=== PATIENT | female | born 1955 | race Caucasian/White ===

== ENCOUNTER → 2020-09-21 07:30 | Outpatient (CLI) | payer OTHER, MEDICAID, SELFPAY ==
--- NOTE | 2020-09-21 | DI.ECHO.S_ITS ---
[facility] +---------+ : : [address] : [place] : : : : [id number] : : : : Phone: [phone]---------+ Echocardiogram Report + + :Name: PARK CEBALLOS Study Date: 09/21/2020 Height: 67 in : :[facility] ReadingLocation: Weight: 242 lb : : Gender: Female BSA: 2.2 m2 : :: 1955 Age: 65 yrs BP: 159/81 mmHg: :Reason For Study: Chest pain : :Ordering Physician: : :LETHA CORONA Performed By: Floyd Pradhan : :Referring: LETHA CORONA : + + Interpretation Summary The ejection fraction is estimated to be 60-65%. There is mild mitral regurgitation. There is a bioprosthetic aortic valve. The prosthetic aortic valve is not well visualized. There is probable normal prosthetic aortic valve function. There is mild tricuspid regurgitation. The right ventricular systolic pressure is estimated to be at least 29 mmHg based on an estimated right atrial pressure of 3 mm Hg. Procedure: A two-dimensional transthoracic echocardiogram with color flow and Doppler was performed. The study quality was technically adequate. Comparison is made with the echocardiogram of 07/19/2020. The patient was in sinus rhythm with heart rates between 72-82 bpm during the exam. Left Ventricle: The left ventricle is normal in size and wall thickness. Left ventricular systolic function is normal. The ejection fraction is estimated to be 60-65%. There are no focal wall motion abnormalities. Diastolic function could not be accurately assessed due to contradictory data. Right Ventricle: The right ventricle is normal in size and function. Atria: Both atria are normal in size. There is no Doppler evidence for an interatrial shunt. Mitral Valve: The mitral valve leaflets appear borderline thickened, but open well. There is mild mitral regurgitation. Aortic Valve: There is a bioprosthetic aortic valve. There is probable normal prosthetic aortic valve function. The prosthetic aortic valve is not well visualized. No aortic regurgitation is present. Tricuspid Valve: The tricuspid valve is normal in structure and function. There is mild tricuspid regurgitation. The right ventricular systolic pressure is estimated to be at least 29 mmHg based on an estimated right atrial pressure of 3 mm Hg. Pulmonic Valve: The pulmonic valve is not well visualized. There is no pulmonic valvular regurgitation. Great Vessels: The aortic root is not well visualized. The ascending aorta could not be visualized. The IVC is of normal diameter and collapses greater than 50% with a sniff. This suggests a low right atrial pressure of 3 mm Hg. Pericardium/ Pleura There is no pericardial effusion. There is no pleural effusion. MMode/2D Measurements & Calculations LVIDd: 4.5 cm LA A2 area: 12.0 cm2 LVIDs: 3.0 cm LA A4 area: 12.0 cm2 FS: 34.9 % LA length (vol): 4.3 cm IVSd: 0.94 cm LA vol: 28.3 ml LVPWd: 0.98 cm LA vol index: 12.9 ml/m2 LV reyes. diameter/BSA (cm/m^2): 2.1 LV sys. diameter/BSA (cm/m^2): 1.3 RA long axis: 4.0 cm RVD1 (basal): 2.6 cm RA area: 7.8 cm2 TAPSE: 2.1 cm RA vol: 12.8 ml RA : 5.9 ml/m2 Doppler Measurements & Calculations Ao V2 max: 236.4 cm/sec LVOT Max Bobby: 138.0 cm/sec Ao V2 mean: 167.6 cm/sec LV V1 max P.6 mmHg Ao max P.3 mmHg LV V1 VTI: 31.6 cm Ao mean P.5 mmHg sev ratio: 0.64 Ao V2 VTI: 49.1 cm MV E max bobby: 108.2 cm/sec TR max bobby: 252.3 cm/sec MV A max bobby: 106.6 cm/sec TR max P.5 mmHg MV E/A: 1.0 PA V2 max: 98.6 cm/sec Med Peak E' Bobby: 5.3 cm/sec PA V2 mean: 70.0 cm/sec E/E' med: 20.5 PA mean P.2 mmHg Lat Peak E' Bobby: 7.8 cm/sec PA pr(Accel): 54.1 mmHg E/E' lat: 13.9 E/e' average: 17.2 MV dec time: 0.29 sec Reading Physician:02:13 PM
== END ==
PROVIDERS: PCP Internal Medicine; Referring Provider Internal Medicine; Visit Provider Internal Medicine
DX: I08.1 Rheumatic disorders of both mitral and tricuspid valves (principal); Z95.2 Presence of prosthetic heart valve
CPT/HCPCS: 93306